=== PATIENT | male | born 1965 | race Caucasian/White ===

== ENCOUNTER 2024-12-14 17:13 | Emergency (ER) | payer OTHER ==
[~2024-12-14] VITALS: Ht 175.3 cm; Wt 88.5 kg
[2024-12-14 17:23] VITALS: TEMP 97.9
[2024-12-14] MEDS ORDERED: ACETAMINOPHEN 325 MG TABLET ONE (17:34)
[2024-12-14] MEDS: ACETAMINOPHEN 325 MG TABLET PO ONE (17:38)
[2024-12-14] MEDS ORDERED: IBUP-1953 PO (18:15)
[2024-12-14 18:31] VITALS: BP 139/90; O2SAT 99
== END 2024-12-14 18:32 | disposition home or self-care (01) ==
LOC: ER 17:21
DX: S93.692A Other sprain of left foot, initial encounter (principal); M25.572 Pain in left ankle and joints of left foot; W23.0XXA Caught, crushed, jammed, or pinched between moving objects, initial encounter; Y93.89 Activity, other specified; Y92.89 Other specified places as the place of occurrence of the external cause; Y99.8 Other external cause status
CPT/HCPCS: 73610-TC; 73630-TC